=== PATIENT | female | born 1990 | race African-American/Black ===

== ENCOUNTER 2024-03-16 02:03 | Emergency (ER) | payer OTHER, SELFPAY ==
[2024-03-16] VITALS (12 sets, daily range): BP systolic 105–124; BP diastolic 64–79; PULSE 65–101; RESP 12–21; TEMP 36.6–37.1; O2SAT 97–100
--- NOTE | ~2024-03-16 | XR_ITS ---
XR shoulder RT min 2V 03/16/2024 03:36 Indication: Right shoulder pain. Post reduction. Procedure: 3 views right shoulder Comparison: 03/16/2024 Findings: There is anatomic alignment of the shoulder post reduction. No underlying fracture is ident ified. Acromioclavicular joint intact. No soft tissue abnormality. Impression: 1: Anatomic alignment of the right shoulder without underlying fracture. Reviewed, dictated and finalized at location A. ER FISHER Impression: 1: Anatomic alignment of the right shoulder without underlying fracture.
--- NOTE | ~2024-03-16 | XR_ITS ---
XR shoulder RT min 2V 03/16/2024 02:45 Indication: Right shoulder pain Procedure: 4 views right shoulder Comparison: No prior studies for comparison. Findings: Right anterior shoulder dislocation. No fracture is identified. No soft tissue abnormality. Visualized lung is unremarkable. Impression: 1: Right anterior shoulder dislocation. Reviewed, dictated and finalized at location A. GATION TECHNICIAN Impression: 1: Right anterior shoulder dislocation.
[2024-03-16] MEDS: HYDROmorphone HCL INJ (*CRX) 1 MG/ML SYR IV PUSH (02:31)
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
[2024-03-16 02:40] LABS: Basophils Absolute Auto 0.1 K/mm3 (0.0-0.1); Basophils Percent Auto 0.7 % (0.2-1.2); Eosinophils Percent Auto 0.3 % (0-4.4); Hematocrit 33.4 % (37.0-47.0); Hemoglobin 10.3 g/dL (12.0-15.0); Immature Granulocyte Absolute 0.01 K/mm3 (0.00-0.031); Immature Granulocyte Percent A 0.1 % (0-0.5); Lymphocytes Absolute Auto 2.05 K/mm3 (0.9-3.2); Lymphocytes Percent Auto 28.6 % (18.3-44.2); Mean Corpuscular HGB Conc 30.8 g/dl (32-36); Mean Corpuscular Hemoglobin 24.6 pg (26-34); Mean Corpuscular Volume 79.7 fl (80-100); Mean Platelet Volume 10.9 fl (7.4-10.4); Monocytes Absolute Auto 0.6 K/mm3 (0.1-0.6); Monocytes Percent Auto 7.8 % (2.6-8.5); Neutrophils Absolute Auto 4.5 K/mm3 (1.3-6.7); Neutrophils Percent Auto 62.5 % (45.5-73.1); Platelet Count Result 239 k/mm3 (150-375); Red Blood Count 4.19 M/mm3 (4.2-5.4); Red Cell Distribution Width 15.7 % (11.5-14.5); White Blood Count 7.2 K/mm3 (4.5-10.0)
[2024-03-16 02:50] LABS: Alanine Aminotransferase 14 U/L (6-35); Albumin Level 4.2 g/dL (3.5-5.1); Alkaline Phosphatase 43 U/L (38-126); Anion Gap 8 mmol/L (4-12); Aspartate Amino Transferase 29 U/L (14-36); Bilirubin,Total 0.4 mg/dL (0.2-1.3); Blood Urea Nitrogen 10 mg/dL (7-17); Carbon Dioxide 22 mmol/L (22-30); Chloride 109 mmol/L (98-107); Estimated CRCL calculation 93 ml/min; Estimated Glomerular Filt Rate > 60; Glucose 100 mg/dL (65-110); Potassium 4.1 mmol/L (3.4-5.0); Sodium 139 mmol/L (137-145)
[2024-03-16] MEDS: PROPOFOL IV EMULSION 200 MG/20 ML VIAL 100 MG IV PUSH (03:32)
--- OUTSIDE RECORDS SUMMARY | 2024-03-16 03:58 | XMS_ITS | Encounter Summary ---
Author Organization [facility] Address [address] [place] [address]. [place], [place] [id number] [place] [id number] Care Team Providers Care Security Administrator Name Role Phone Alee Lake MD Primary Care Provider [phone] Encounter Details Date Type Department Care Team (Late st Contact Info) Description 02/10/2024 [employer] Message [employer] [facility] [place] BUSINESS OFFICE [facility] Provider ACTION REQUIRED Social History Tobacco Use Types Packs/Day Years Used Date Smoking Tobacco: Never Smokeless Tobacco: Never Alcohol Use Standard Drinks/Week Comments Yes 0 (1 standard drink = 0.6 oz pur e alcohol) socially Comments No Sex and Gender Information Value Date Recorded Sex Assigned at Not on file Legal Sex Female 5:03 PM CDT Gender Identity Not on file Sexual Orientation Not on file documented as of this encounter Plan of Treatment Not on file documented as of this encounter Visit Diagnoses Not on filedocumented in this encounter Care Teams Security Administrator Relationship Specialty Start Date End Date Alee Lake MD [address] [place] [id number] PCP - General FAMILY PRACTICE 07/19/20 documented as of this encounter
--- OUTSIDE RECORDS SUMMARY | 2024-03-16 03:58 | XMS_ITS | Clinical Summary ---
Author Organization [facility] Care Team Providers Care Radio Time Buyer Name Role Phone Unavailable Primary Care Provider Unavailabl e Social History Tobacco Use Types Packs/Day Years Used Date Smoking Tobacco: Never Assessed Comments Unknown Sex and Gender Information Value Date Recorded Sex Assigned at Not on file Legal Sex Female 3:14 PM OPTIONS TRADER Gender Identity Not on file Sexual Orientation Not on file Plan of Treatment Health Maintenance Due Date Last Done Comments Hepatitis C Virus (HCV) Screening 1990 TdaP Immunization 1990 Hepatitis B Immunization (1 of 3 - 19+ 3-dose series) 10/08/2011 Pap Smear 2013 Cervical Cancer Screening (CCS) 2022 HPV/Cotest 2022 Influenza Immunization (#1) 2023 SARS-COV-2 Immunization ( season) 2023 Respiratory Syncytial Virus (RSV) Immunization (Adult) (1 - 1-dose 75+ series) 10/08/2067 DTaP/Tdap/Td Immunization Discontinued 06/12/2002 Meningococcal Immunization (ACWY) Aged Out No longer eligible based on patient's age to complete this topic Pneumococcal Immunization Combined Aged Out No longer eligible b ased on patient's age to complete this topic Rotavirus Immunization Aged Out No lo nger eligible based on patient's age to complete this topic
--- OUTSIDE RECORDS SUMMARY | 2024-03-16 03:58 | XMS_ITS | Referral Summary ---
Author Organization [facility] Address [address] [place] [id number] Care Team Providers Care Save All Operator Name Role Phone Alee Lake MD Primary Care Pro vider Allergies No known active allergies Medications fluconazole (DIFLUCAN) 150 mg tabletIndicatio ns:Yeast vaginitis Take 1 tablet (150 mg total) by mouth as directed Take one tab now. Repeat in 7 days if symptoms persist. 2 tablet 03/11/2022 Active Active Problems Problem Noted Date Diagnosed Date Pre-op evaluation 07/17/2020 Assessment & Plan (07/17/2020 1:28 PM CDT): Preoperative examination Procedure: breast augmentation Date: 07/24 Surgeon: Dr. Miranda Risk of procedure: low RCRI: Class I risk, 3.9% 30d risk of , WA or cardiac arrest METs: excellent ACS NSQIP Surgical Risk Calculator: below average risk Personal or family hx of problems with anesthesia: no Medical History / Risk factors: ?? Cardiovascular disease (WA, angina, arrhythmia, HF): no ?? Lung disease (asthma, COPD): history of exercise induced asthma, no recent issues ?? GI disease (liver, gall bladder): no ?? Uro/Renal disease (CKD, nephrolithiasis): no ?? MSK disease (neck or jaw pain/stiffness/arthritis): no ?? Neurological disease (seizures, CVA): no ?? Endocrine disease (thyroid, DM2): no Reviewed EKG: NSR Overall assessment of risk: low. No contraindications to procedure, would be within acceptable risk. Encounter for well woman exa m with routine gynecological exam 07/17/2020 Assessment & Plan (03/11/2022 9:36 AM HEALTHCARE ANALYST): Reviewed PMH & FH PHQ Screening PHQ-2 Total Score (If total score is 3 or more points, staff should administer the PHQ-9): 0 Reviewed medications and supplements HCM: orders placed as needed Assessment & Plan (07/17/2020 1:33 PM CDT): Never smoker Alcohol use: socially PAP: 2019 Planning : no, using condoms. Recommend PNV Sexual transmitted infection testing: declines BP wnl PHQ Screenin Body mass index is 19.87 kg/m??. Discussed diet and exercise Feels safe at home Immunizations Name Administration Dates Next Due DTaP 06/08/1997, 5,04/14/1993,02/11,1992 Hep A, Adult 12/23/2016 Hep A, Pediatric 05/24/2006 Hep B, Adolescent or Pediatric 05/17/1993,1992,1992 Hib (PRP-D) 04/15/1994, 4,02/11/1993,12/07 IPV 06/12/2002, 8,04/15/1994,04/14,02/11/1993,1992 Influenza, Unspecified 03/11/2022(Deferred: Janis ent Refused) MMR 06/12/2002,06/08/1997,04/15/1994 Meningococcal Polysaccharide (Menomune) 05/24/2006 PPD TEST 05/22/2006 Td, Unspecified 05/24/2006 Td, adsorbed 06/12/2002 Tdap 08/31/2016 Social History Tobacco Use Types Packs/Day Years Used Date Smoking Tobacco: Never AUDIT-C Answer Date Recorded Q1: How often do you have a drink containing alc ohol? 2-4 times a month 03/11/2022 Average Number of Drinks Not on file 023 Frequency of Binge Drinking Not on file 02/16 PHQ-2 Answer Date Recorded PHQ-2 Total Score (If total score is 3 or more points, staff should administer the PHQ-9) 0 03/11/2022 Personal Safety Answer Date Recorded Getting School Help Needed Not on file 01/31 Comments No Sex and Gender Information Value Date Recorded Sex Assigned at Not on file Legal Sex Female 6:05 PM HEALTHCARE ANALYST Gender Identity Not on file Sexual Orientation Not on file Last Filed Vital Signs Vital Sign Reading Time Taken Comments Blood Pressure 116/72 03/11/2022 9:28 AM HEALTHCARE ANALYST Pulse 76 03/11/2022 9:28 AM HEALTHCARE ANALYST Temperature 36.2 ??C (97.2 ??F) 03/11/2022 9:28 AM CS T Respiratory Rate 18 03/11/2022 9:28 AM HEALTHCARE ANALYST Oxygen Saturation 98% 03/11/2022 9:28 AM HEALTHCARE ANALYST Inhaled Oxygen Concentration - - Weight 60.5 kg (133 lb 6.4 oz) 03/11/2022 9:28 A M HEALTHCARE ANALYST Height 167.6 cm (5' 6 ) 03/11/2022 9:28 AM HEALTHCARE ANALYST Body Mass Index 21.53 03/11/2022 9:28 AM HEALTHCARE ANALYST Plan of Treatment Not on file Procedures Procedure Name Priority Date/Time Associated Diagnosis Comments HEPATITIS PANEL, ACUTE Routine 03/11/2022 10:14 AM HEALTHCARE ANALYST Encounter for well woman exam with routine gynecological exam PAP WITH REFLEX TO HIGH RISK HPV Routine 03/11/2022 9:29 AM HEALTHCARE ANALYST Encounter for well woman exam with routine gynecological exam from Last 3 Months or Most Recently Relevant to Health Maintenance Results * Hepatitis panel, acute (03/11/2022 10:14 AM HEALTHCARE ANALYST) Hep A IgM Nonreactive Nonreactive [facility]STIN Comment: Interpretive Data: If Hep A IgM Ab is reported as Equivocal, a new sample should be drawn in two weeks for testing. Current interpretive data was last revised on 19. Hep B core IgM Nonreactive Nonreactive KRISTIN Comment: Interpretive Data If HepB Core IgM Ab is reported as Equivocal, a new sample should be drawn in two weeks for testing. Current interpretive data was last revised on 19. Hep C Ab Nonreactive Nonreactive KRISTIN Comment: Interpretive Data Nonreactive: Antibodies to HCV not detected. Does NOT exclude the possibility of recent exposure to HCV. Equivocal: Equivocal for HCV antibodies. Supplemental molecular testing will be automatically performed to determine infection status in accordance with current CDC screening recommendations. ?? Reactive: Positive for HCV antibodies. ??This may represent current or past HCV infection. Supplemental molecular testing will be automatically performed to determine ??current infection status in accordance with current CDC screening recommendations. Interpretive data was last revised on 2019. HepBsAg Nonreactive Nonreactive K[facility]STIN Blood 03/11/2022 10:1 4 AM HEALTHCARE ANALYST 03/11/2022 12:35 PM HEALTHCARE ANALYST us Alee Lake MD LAB MICROBIOLOGY - GENERAL ORDERABLES Final Result [facility] [address] [facility] [place] [address] * Pap with reflex to High Risk HPV (03/11/2022 9:29 AM HEALTHCARE ANALYST) Thin prep (Pap test) 03/11/2022 9:29 AM HEALTHCARE ANALYST 03/12/2022 9:29 AM HEALTHCARE ANALYST Narrative PATHOLOGY [facility] - 03/16/2022 1:52 PM HEALTHCARE ANALYST [facility] Department of Pathology [address] [place] [id number] Final Report Note to Patients: This report may contain a detailed description of human tissue sent by a health care provider to the laboratory for pathologic evaluation. The content of this report is essential for diagnosis and may provide important critical findings. This information may be unfamiliar to patients to review without a medical professional present. It is advised that the patient review this report in the presence of a health care provider who can answer questions and explain the details. Patient Name: ??TAQUERIA VELOZ Address: ??[address] [place] [address] [address], ?? [place], [place] [address] Gender: ??F : ??1990 (Age: 31) Service: ?? Location: ?? Hospital #: ??[id number] Patient Type: ??[facility] SPECIMEN Taken: ??03/11/2022 Received: ??03/12/2022 Accessioned:: ??03/13/2022 Reported: ??03/16/2022 Physician(s): Alee aLke M.D. [facility] Diagnosis: Source of Specimen: ? Imaged Thinprep Pap Test w/ Reflex HPV - [employer] Cytologic Material Specimen Adequacy: ?- Specimen satisfactory for interpretation; endocervical/transformation zone component absent or ?insufficient General Category: ?- Negative for intraepithelial lesion or malignancy Interpretation/Results: ?- Fungal organisms present, morphologically consistent with chary species ?- Predominance of coccobacilli consistent with shift in vaginal michell. Possible bacterial vaginosis RED Lindsay(ASCP) Report Electronically Reviewed and Signed Out By ??RED Lindsay(ASCP) ??03/16/2022 13:52:17Specimen(s) Received: A: Imaged Thinprep Pap Test w/ Reflex HPV - [employer] Cytologic Material Clinical History: Last Menstrual Period: 03/05/22 The Pap test is a screening test used to aid in the detection of cervical cancer and its precursors. ??It should not be the sole means by which malignant and premalignant lesions are diagnosed. ??Both false negative and false positive results may occur. ?? It also has poor sensitivity for the detection of endometrial lesions and should not be used to evaluate suspected endometrial abnormalities. ??For these reasons it is most important to obtain Pap tests at regular intervals. The performance characteristics of some immunohistochemical stains, fluorescence in-situ hybridization tests and immunophenotyping by flow cytometry cited in this report (if any) were determined by the Surgical Pathology Department at [facility] as part of an ongoing rn quality program and in compliance with federally mandated regulations drawn from the Clinical Laboratory Improvement Act of 1988 (CLIA '88). ??Some of these tests rely on the use of analyte specific reagents and are subject to specific labeling requirements by the US Food and Drug Administration. ??Such diagnostic tests may only be performed in a facility that is certified by the Department of Health and Human Services as a high complexity laboratory under CLIA '88. The FDA has determined that such clearance or approval is not necessary. ??This test is used for clinical purposes. ??It should not be regarded as investigational or for research. ??Nevertheless, federal rules concerning the medical use of analyte specific reagents require that the following disclaimer be attached to the report: This test was developed and its performance characteristics determined by the Surgical Pathology Department [facility]. ??It has not been cleared or approved by the U. S. Food and Drug Administration. Alee Lake MD LAB CYTOLOGY [facility] [employer] Final Result PATHOLOGY [facility] from Last 3 Months or Most Recently Relevant to Health Maintenance Insurance [facility] Care Teams Save All Operator Relationship Specialty Start Date End Date Alee Lake MD PCP - General Family Medicine 07/17/20
--- OUTSIDE RECORDS SUMMARY | 2024-03-16 03:58 | XMS_ITS | Patient Health Summary ---
Author Organization [facility] [employer] Address [address] [place] [address] Care Team Providers Care Diesel Retrofit Designer Name Role Phone Alee Lake MD Primary Care Pro vider Note from [facility],non-owned Affiliates and Associated Physician Practices is amultiple site organization consisting of ambulatory clinics and hospital sitesin [place], [place], [place] and [place]. This disclosure is being madepursuant to the Care Everywhere program and may not contain all information available regarding this patient. Last updated 17.[facility] [employer] Allergies No known active allergies Medications Be aware that medications may not be up to date on this document. Always verify current medications with the patient. No known medications Active Problems Problem Noted Date Diagnosed Date Chlamydia infection 08/13/2010 Immunizations * DTaP VACCINE IM (6wk-6yrs)(Given 06/08/1997, 04/15/1994, 04/14/1993, 02/11/1993, 1992) * HEP A PEDS 2 DOSE(Given 05/24/2006) * HEP B VACCINE, PED/ADOL(Given 05/17/1993, 1992, 1992) * HIB BOOSTER(Given 04/15/1994, 04/14/1993, 02/11/1993, 1992) * MENINGOCOCAL MENINGITIS(Given 05/24/2006) * MMR(Given 06/08/1997, 04/15/1994) * POLIO IPV(Given 06/08/1997, 04/15/1994, 04/14/1993, 02/11/1993, 1992) * PPD(Given 05/22/2006) * TD VACCINE(Given 05/24/2006) Social History Tobacco Use Types Packs/Day Years Used Date Smoking Tobacco: Never Assessed Sex and Gender Information Value Date Recorded Sex Assigned at Not on file Gender Identity Not on file Sexual Orientation Not on file Last Filed Vital Signs Vital Sign Reading Time Taken Comments Blood Pressure - - Pulse - - Temperature 37.4 ??C (99.4 ??F) 09/12/2010 4:28 PM CD T Respiratory Rate - - Oxygen Saturation - - Inhaled Oxygen Concentration - - Weight 60.7 kg (133 lb 12.8 oz) 09/12/2010 4:28 PM CDT Height 168.3 cm (5' 6.25 ) 09/12/2010 4:28 PM CD T Body Mass Index 21.43 09/12/2010 4:28 PM CDT Procedures * US BREAST BILATERAL COMPLETE(Performed 07/22/2020) Performed for Encounter for breast augmentation * CHLAMYDIA + GC AMPLIFIED PROBE(Performed 09/12/2010) Performed for Chlamydia infection * LAB RESULTS ORDER(Performed 08/12/2010) * LAB RESULTS ORDER(Performed 08/11/2010) Results * US BREAST BILATERAL COMPLETE( whole breast including axilla and retroareaolar region) (07/22/2020 8:28 AM CDT) Anatomical Region Laterality Modality Breast Bilateral Ultrasound 07/22/2020 8:29 AM CDT Impressions 07/22/2020 8:45 AM CDT 1. Normal echotexture seen throughout the right breast, other than a 10:00 6 mm benign-appearing hypoechoic mass with a central echogenic nodule, which may represent a benign lymph node or fat necrosis from prior trauma. 2. Normal echotexture is seen throughout left breast. 3. No axillary adenopathy, with a benign left axillary lymph node noted. BI-RADS Category (2): ?? Benign finding(s). RECOMMENDATION: Patient will undergo bilateral breast implants. Return for mammographic screening at age 40, or sooner if clinically indicated. *Reading Radiologist: Sonia Schwartz on 07/22/2020 at 8:45 AM Narrative 07/22/2020 8:45 AM CDT BILATERAL BREAST ULTRASOUND, COMPLETE HISTORY: Patient is preoperative for bilateral breast implants. Whole breast screening preoperative. Patient did states she had a trauma in 2006 or 2007 with right shoulder dislocation-she was not sure for right breast had any bruising. TECHNIQUE: Real-time complete ultrasound of both breasts, including retroareolar and axillary regions was performed. I also scanned the patient . COMPARISON: No priors FINDINGS: Right breast: Normal echotexture is seen throughout the right breast, other than in the 10:00 breast/4 cm from nipple, there is a 6 x 5 mm hypoechoic mass with a central echogenic nodule. No central flow is seen, however findings could represent a benign lymph node. Alternatively findings could represent sequelae of prior trauma with fat necrosis. Right axilla shows no adenopathy of concern. Left breast: Normal breast echotexture is seen throughout the left breast, with no focal mass of concern. Left axilla has small benign fatty replaced lymph node with thin cortical morphology. No adenopathy of concern. Lloyd Miranda MD US ORDERABLES * CHLAMYDIA + GC AMPLIFIED PROBE (09/12/2010 4:43 PM CDT) Chlamydia [facility] Urine Negative Negative [facility] ACCOUNT BILL GC [facility] Urine Negative Negative [facility] ACCOUNT BILL Please Note [facility] ACCOUNT BILL Comment: Acceptable specimens for this test are male urethral swab, endocervical swab and liquid based pap specimens, vaginal swabs in APTIMA transports and first void urine. See online Directory of Services for test number for rectal and pharyngeal specimens. ENTIRE ENDOCERVIX / Unknown 09/12/2010 4:43 PM CDT 09/12/2010 8:25 PM CDT Narrative Resulting Agency Comment [facility] [place] [address] ??[facility] [phone] Lucina Daniels MD LAB - MICROBIOLOGY O RDERABLES [facility] ACCOUNT BILL * LAB RESULTS ORDER (08/12/2010) Only the most recent of2 resultswithin the time period is included. Emergency Physician LAB - THERAPEUTIC DR KELLY MONITORING ORDERABLES Care Teams Diesel Retrofit Designer Relationship Specialty Start Date End Date Alee Lake MD [facility] [phone] PCP - General Family Medicine 07/22/20
--- OUTSIDE RECORDS SUMMARY | 2024-03-16 03:58 | XMS_ITS | Clinical Summary ---
Author Organization [facility] Address [address] [place] [id number] Care Team Providers Care Aviation Tactical Readiness Officer Name Role Phone Alee Lake MD Primary [...] I risk, 3.9% 30d risk of , CT or cardiac arrest METs: excellent ACS NSQIP Surgical Risk Calculator: below average risk Personal or family hx of problems with anesthesia: no Medical History / Risk factors: ?? Cardiovascular disease (CT, angina, arrhythmia, HF): no ?? Lung disease [...] 07/17/2020 Assessment & Plan (03/11/2022 9:36 AM COMMUNITY ASSOCIATE): Reviewed PMH & FH PHQ Screening PHQ-2 [...] Unspecified 05/24/2006 Td, adsorbed 06/12/2002 Tdap 08/31/2016 Surgical History Surgery Date Site/Laterality Comments BREAST SURGERY 07/16/2020 - 08/14/2020 Bilateral implants Family History Medical History Relation Name Comments No Known Problems Father No Known Problems Mother Relation Name Status Comments Father Alive Mother Alive Social History Tobacco Use Types Packs/Day Years [...] on file Legal Sex Female 6:05 PM COMMUNITY ASSOCIATE Gender Identity Not on file Sexual Orientation Not on file Obstetrics History Last Filed Vital Signs Vital Sign Reading Time Taken Comments Blood Pressure 116/72 03/11/2022 9:28 AM COMMUNITY ASSOCIATE Pulse 76 03/11/2022 9:28 AM COMMUNITY ASSOCIATE Temperature 36.2 ??C (97.2 ??F) 03/11/2022 9:28 AM CS T Respiratory Rate 18 03/11/2022 9:28 AM COMMUNITY ASSOCIATE Oxygen Saturation 98% 03/11/2022 9:28 AM COMMUNITY ASSOCIATE Inhaled Oxygen Concentration - - Weight 60.5 kg (133 lb 6.4 oz) 03/11/2022 9:28 A M COMMUNITY ASSOCIATE Height 167.6 cm (5' 6 ) 03/11/2022 9:28 AM COMMUNITY ASSOCIATE Body Mass Index 21.53 03/11/2022 9:28 AM COMMUNITY ASSOCIATE Plan of Treatment Health Maintenance Due Date Last Done Comments Varicella Vaccines (1 of 2 - 13+ 2-dose series) 2005 Depression Screening 03/11/2023 03/11/2022, 07/17/2020, 07/17/2020 Regular Well Visit/Exam 18-64 03/11/2023 03/11/2022, 07/17/2020 Influenza Vaccine (#1) 2023 DTaP/Tdap/Td Vaccine (7 - Td or Tdap) 08/31/2026 08/31/2016, 05/24/2006, 06/12/2002, Additional history exists Cervical Cancer Screening 03/11/2027 03/11/2022, Hepatitis C Screening Completed 03/11/2022 HPV Vaccines Aged Out No longer eligi ble based on patient's age to complete this topic Pneumococcal vaccine <65 Aged Out No longer eligible based on patient's age to complete this topic Procedures Procedure Name Priority Date/Time Associated Diagnosis Comments HEPATITIS PANEL, ACUTE Routine 03/11/2022 10:14 AM COMMUNITY ASSOCIATE Encounter for well woman exam with routine gynecological exam PAP WITH REFLEX TO HIGH RISK HPV Routine 03/11/2022 9:29 AM COMMUNITY ASSOCIATE Encounter for well woman exam with routine gynecological exam from Last 3 Months or Most Recently Relevant to Health Maintenance Results * Hepatitis panel, acute (03/11/2022 10:14 AM COMMUNITY ASSOCIATE) Hep A IgM Nonreactive Nonreactive [facility] Comment: [...] Nonreactive K[facility]STIN Blood 03/11/2022 10:1 4 AM COMMUNITY ASSOCIATE 03/11/2022 12:35 PM COMMUNITY ASSOCIATE us Alee Lake MD LAB MICROBIOLOGY - GENERAL ORDERABLES Final Result [facility] [address] [facility] [place] [address] * Pap with reflex to High Risk HPV (03/11/2022 9:29 AM COMMUNITY ASSOCIATE) Thin prep (Pap test) 03/11/2022 9:29 AM COMMUNITY ASSOCIATE 03/12/2022 9:29 AM COMMUNITY ASSOCIATE Narrative PATHOLOGY [facility] - 03/16/2022 1:52 PM COMMUNITY ASSOCIATE [facility] Department of Pathology [address] [place], [place] [id number] Final Report Note to Patients: This report [...] and explain the details. Patient Name: ??TAQUERIA VELOZTeo Address: ??[address], ?? [place], [place] ?? Gender: ??F : ??1990 (Age: 31) Service: ?? Location: ?? Hospital #: ??[id number] Patient Type: ??[facility] SPECIMEN Taken: ??03/11/2022 Received: ??03/12/2022 Accessioned:: ??03/13/2022 Reported: ??03/16/2022 Physician(s): Alee Lake M.D. [facility] Diagnosis: Source of Specimen: ? Imaged Thinprep Pap Test w/ Reflex HPV - Tire Tester Cytologic Material Specimen Adequacy: ?- Specimen satisfactory [...] Thinprep Pap Test w/ Reflex HPV - Tire Tester Cytologic Material Clinical History: Last Menstrual Period: [...] determined by the Surgical Pathology Department at [facility] as part of an ongoing quality lead program and in compliance with federally mandated [...] characteristics determined by the Surgical Pathology Department [facility]. ??It has not been cleared or approved by the U. S. Food and Drug Administration. Alee Lake MD LAB CYTOLOGY [facility] Final Result PATHOLOGY [facility] from Last 3 Months or Most Recently Relevant to Health Maintenance Insurance [facility] Care Teams Aviation Tactical Readiness Officer Relationship Specialty Start Date End Date Alee Lake MD PCP - General Family Medicine 07/17/20
--- OUTSIDE RECORDS SUMMARY | 2024-03-16 03:58 | XMS_ITS | Clinical Summary ---
Author Organization [facility] Address [address] [place] [address] Care Team Providers Care Poultry Hatchery Man Name Role Phone Alee Lake MD Primary Care Pro vider Source Comments [facility],non-owned Affiliates and Associated Physician Practices is amultiple site organization consisting of ambulatory clinics and hospital sitesin [place], [place], [place]. This disclosure is being madepursuant to the Care Everywhere program and may not contain all informatio navailable regarding this patient. Last updated 17.[facility] Allergies No known active allergies Medications Be aware that medications may not be up to date on this document. Always verify current medications with the patient. No known medications Active Problems Problem Noted Date Diagnosed Date Chlamydia infection 08/13/2010 Overview (08/20/2010): Positive cx Immunizations Name Administration Dates Next Due DTaP VACCINE IM (6wk-6yrs) 06/08/1997,,04/14/1993,02/11/1993,12/07 HEP A PEDS 2 DOSE 05/24/2006 HEP B VACCINE, PED/ADOL 05/17/1993,1992, HIB BOOSTER 04/15/1994,04/14/1993,02/11/1993 ,1992 MENINGOCOCAL MENINGITIS 05/24/2006 MMR 06/08/1997,04/15/1994 POLIO IPV 06/08/1997, 5,04/14/1993,02/11/1993,12/07 PPD 05/22/2006 TD VACCINE 05/24/2006 Social History Tobacco Use Types Packs/Day Years [...] Mass Index 21.43 09/12/2010 4:28 PM CDT Plan of Treatment Health Maintenance Due Date Last Done Comments PAP SMEAR 1990 HIV SCREENING 10/08/2007 HEPATITIS C SCREENING 10/03/2010 DTAP/TDAP/TD VACCINES (7 - Td or Tdap) 05/24/2016 05/24/2006, 06/08/1997, 04/15/1994, Additional history exists COVID-19 VACCINE ( season) 2023 INFLUENZA VACCINE (#1) 2023 DEPRESSION SCREENING 02/16/2024 ZOSTER VACCINE (1 of 2) 2042 HEPATITIS B VACCINE Completed 05/17/1993, 1992, 1992 HIB VACCINE Completed 04/15/1994, 03/19, 02/11/1993, Additional history exists MENINGOCOCCAL VACCINE Aged Out 05/24/2006 No megan milla eligible based on patient's age to complete this topic HPV VACCINE Aged Out No longer eligi ble based on patient's age to complete this topic MENINGOCOCCAL (Group B) VACCINE Aged Out No longer eligible based on patient's age to complete this topic PNEUMOCOCCAL VACCINE Aged Out No long er eligible based on patient's age to complete this topic Care Teams Poultry Hatchery Man Relationship Specialty Start Date End Date Alee Lake MD [address] [place] [phone] PCP - General Family Medicine 07/22/20
--- OUTSIDE RECORDS SUMMARY | 2024-03-16 03:58 | XMS_ITS | Clinical Summary ---
Author Organization [facility] Address [address] [place] [address]. [place], [place] [id number] [place] [id number] Care Team Providers Care Therapist Radiation Name Role Phone Alee Lake MD Primary Care Provider [phone] Allergies No known active allergies Medications No known medications Encounters Date Type Department Care Team Description 02/10/2024 [place] Message Enc [facility] BUSINESS OFFICE [facility] Provider ACTION REQUIRED from Last 3 Months Family History Medical History Relation Comments No Known Problems Father Hypertension Mother Relation Status Comments Father Alive Mother Alive Social History Tobacco Use Types Packs/Day Years Used Date Smoking Tobacco: Never Smokeless Tobacco: Never Tobacco Cessation:Counseling Given: Not Answered Alcohol Use Standard Drinks/Week Comments Yes 0 (1 standard drink = 0.6 oz pur e alcohol) socially Comments No Sex and Gender Information Value Date Recorded Sex Assigned at Not on file Legal Sex Female 5:03 PM CDT Gender Identity Not on file Sexual Orientation Not on file Last Filed Vital Signs Vital Sign Reading Time Taken Comments Blood Pressure 109/73 09/20/2023 6:20 PM CDT Pulse 72 09/20/2023 6:20 PM CDT Temperature 36.3 ??C (97.4 ??F) 09/20/2023 6:20 PM CD T Respiratory Rate 18 09/20/2023 6:20 PM CDT Oxygen Saturation 100% 09/20/2023 6:20 PM CDT Inhaled Oxygen Concentration - - Weight 59 kg (130 lb) 09/20/2023 6:20 PM CDT Height 167.6 cm (5' 6 ) 09/20/2023 6:20 PM CDT Body Mass Index 20.98 09/20/2023 6:20 PM CDT Plan of Treatment Health Maintenance Due Date Last Done Comments Annual Physical 10/08/1995 Hepatitis C 2010 Cervical Cancer Screening Pap with HPV Testing (Age 30 to 64) Every 5 Years 2022 03/11/2022, 09/12/2010 COVID-19 Vaccine ( season) 2023 Influenza Adult (#1) 2023 Cervical Cancer Screening Pap Smear (Age 30 to 64) Every 3 Years 03/11/2025 03/11/2022, 03/11/2022, 09/12/2010 Cervical Cancer Screening with HPV 03/11/2025 DTaP, Tdap and Td Vaccines (7 - Td or Tdap) 08/31/2026 08/31/2016, 05/24/2006, 06/12/2002, Additional history exists Hepatitis B Vaccines Completed 05/17/1993, 1992, 1992 Meningococcal Vaccine Aged Out 05/24/2006 No megan milla eligible based on patient's age to complete this topic HPV Vaccines Aged Out No longer eligi ble based on patient's age to complete this topic Meningococcal B Vaccine Aged Out No l onger eligible based on patient's age to complete this topic Pneumococcal Vaccine: Pediatrics (0 to 5 Years) and At-Risk Patients (6 to 64 Years) Aged Out No longer eligible based on patient's age to complete this topic RSV Immunizations Under 20 Months Aged Out No longer eligible based on patient's age to complete this topic Insurance [facility] Care Teams Therapist Radiation Relationship Specialty Start Date End Date Alee Lake MD [address] [place] [phone] PCP - General FAMILY PRACTICE 07/19/20
--- OUTSIDE RECORDS SUMMARY | 2024-03-16 03:58 | XMS_ITS | Referral Summary ---
Author Organization [facility] [employer] Address [address] [place] [address] Care Team Providers Care Director Independent Name Role Phone Alee Lake MD Primary Care Pro vider Source Comments [facility] [employer],non-owned Affiliates and Associated Physician Practices is amultiple site organization consisting of ambulatory clinics and hospital sitesin [place], [place], [place] and [place]. This disclosure is being madepursuant to the Care Everywhere program and may not contain all information available regarding this patient. Last updated 17.[employer] Allergies No known active allergies Medications Be [...] 09/12/2010 4:28 PM CDT Plan of Treatment Not on file Care Teams Director Independent Relationship Specialty Start Date End Date Alee Lake MD [address] [place] [phone] PCP - General Family Medicine 07/22/20
== END 2024-03-16 04:09 | disposition home or self-care (01) ==
LOC: ANHED 03:57
PROVIDERS: Emergency Provider Student in an Organized Health Care Education/Training Program; PCP Hospitalist
DX: S43.014A Anterior dislocation of right humerus, initial encounter (principal); Y04.8XXA Assault by other bodily force, initial encounter
CPT/HCPCS: 23650; 36415; 73030; 80053; 85025; 96374; 99285; A4565; J1171; J2704